=== PATIENT | female | born 2000 | race Caucasian/White ===

== ENCOUNTER 2024-04-29 10:17 | Day surgery (SDC) | payer MEDICAID ==
[~2024-04-29 10:17] MED LIST: Midazolam 1 MG/ML 2 ML SDV ONE; Propofol 200 MG/20 ML SDV ONE; fentaNYL 100 MCG/2 ML SDV ONE
[2024-04-29] MEDS: Sodium Chloride 0.9% 1,000 ML IV SCH (11:04)
[2024-04-29] MEDS: ceFAZolin 2 GM in Premix Bag 1 BAG IV ONE (11:15)
[2024-04-29] MEDS: Lidocaine 1% with EPINEPHrine 1:100,000 50 ML MDV ONE (11:46)
[2024-04-29] MEDS: Bupivacaine 0.5% 50 ML MDV ONE (11:46)
[2024-04-29] MEDS ORDERED: Propofol 200 MG/20 ML SDV ONE (11:59)
== END 2024-04-29 14:08 | disposition home or self-care (01) ==
LOC: JP.SDS 10:17
PROVIDERS: ATTEND Surgery
DX: D22.5 Melanocytic nevi of trunk (principal); D22.71 Melanocytic nevi of right lower limb, including hip; K21.9 Gastro-esophageal reflux disease without esophagitis; F41.9 Anxiety disorder, unspecified
CPT/HCPCS: 11403; 21555; 81025; J0665; J0690; J2250; J2704; J3010; J7030; 00300-QZ